=== PATIENT | female | born 1960 | race Caucasian/White ===

== ENCOUNTER 2020-02-23 00:24 | Emergency (ER) | payer BC ==
[2020-02-23] MEDS ORDERED: Bacitracin Oint 1 GM U/D Packet TOP ONE (01:04)
[2020-02-23] MEDS ORDERED: Amoxicillin/Clavulanate K 875-125 MG Tab PO ONE (01:05)
--- NOTE | 2020-02-23 01:12 | EDM.PDOC ---
ED HPI GENERAL MEDICAL PROBLEM - General Chief Complaint: Laceration Stated Complaint: DOG BITE Time Seen by Provider: 02/23/20 01:08 Source of Information: Reports: Patient History Limitations: Reports: No Limitations - History of Present Illness INITIAL COMMENTS - FREE TEXT/NARRATIVE: pt has a bite on the inside of the left thumb. Her dog who is having multiple medical problems had a seizure and was not right after that. She had her last tetanus shot in 2013. Duration: Hour(s): Location: Reports: Upper Extremity, Left Associated Symptoms: Reports: No Other Symptoms - Related Data Allergies Allergy/AdvReac Type Severity Reaction Status Date / Time *blood pressure medication Allergy Hives Uncoded 02/23/20 00:41 Home Meds: Home Meds amLODIPine [Norvasc] 5 mg PO DAILY 02/23/20 [History] Past Medical History HEENT History: Reports: Allergic Rhinitis, Impaired Vision Cardiovascular History: Reports: High Cholesterol, Hypertension [employer] ASS[employer]ATE History: Reports: Musculoskeletal History: Reports: Fracture Neurological History: Reports: Migraines - Infectious Disease History Infectious Disease History: Reports: Chicken Pox - Past Surgical History Musculoskeletal Surgical History: Reports: Arthroscopic Knee Social & Family History - Tobacco Use Tobacco Use Status *Q: Never Tobacco User - Recreational Drug Use Recreational Drug Use: No ED ROS GENERAL - Review of Systems Review Of Systems: See Below Constitutional: Reports: No Symptoms HEENT: Reports: No Symptoms Respiratory: Reports: No Symptoms Cardiovascular: Reports: No Symptoms Endocrine: Reports: No Symptoms GI/Abdominal: Reports: No Symptoms : Reports: No Symptoms Musculoskeletal: Reports: Other (laceration of the left inner thumb from a dog bite. ) ED EXAM, SKIN/RASH Exam: See Below Text/Narrative:: pt has a laceration of the left thumb on the inner aspect about 1 inch in length. Exam Limited By: No Limitations General Appearance: Alert, Anxious Extremities: Other (pt has a 1 inch lacertion of the left thumb. There is normal sensation and motion. ) Neurological: Alert, Oriented, Normal Cognition Course - Vital Signs Last Recorded V/S: Last Vital Signs Temp 35.8 C L 02/23/20 00:50 Pulse 72 02/23/20 00:50 Resp 19 02/23/20 00:50 BP 149/90 H 02/23/20 00:50 Pulse Ox 97 02/23/20 00:50 - Orders/Labs/Meds Meds: Medications Discontinued Medications Generic Name Dose Route Start Last Admin Trade Name Fallon PRN Reason Stop Dose Admin Amoxicillin/Clavulanate Potassium 1 tab 02/23/20 01:05 02/23/20 01:14 Augmentin 875 Mg/125 Mg PO 02/23/20 01:06 1 tab ONETIME ONE Administration Bacitracin 1 dose 02/23/20 01:04 02/23/20 01:14 Bacitracin Oint 1 Gm TOP 02/23/20 01:05 1 dose ONETIME ONE Administration Lidocaine HCl 5 ml 02/23/20 01:04 02/23/20 01:14 Xylocaine-Mpf 1% INJECT 02/23/20 01:05 5 ml ONETIME ONE Administration - Re-Assessments/Exams Free Text/Narrative Re-Assessment/Exam: 02/23/20 01:44 hand was soaked and cleansed well. The area was infiltrated with lidocaine and closed loosely with 5-0 prolene. The wound was dressed with bacatracin. She was given augmentin 875. Pt had her last tetanus in 2013. Departure - Departure Time of Disposition: 01:46 Disposition: Home, Self-Care 01 Condition: Fair Clinical Impression: Dog bite - Discharge Information Referrals: PCP,None [Primary Care Provider] - Forms: ED Department Discharge Care Plan Goals: keep dry, watch closely for any signs of infection, augmentin 875 bid for 10 days, use probiotic or alot of yogurt while on the augmentin suture removal in 7-8 days. Sepsis Event Note (ED) - Evaluation Sepsis Screening Result: No Definite Risk - Focused Exam Vital Signs: Vital Signs Temp Pulse Resp BP Pulse Ox 02/23/20 00:50 35.8 C L 72 19 149/90 H 97
== END 2020-02-23 02:00 | disposition home or self-care (01) ==
LOC: JP.ED 00:24
DX: S61.052A Open bite of left thumb without damage to nail, initial encounter (principal); I10 Essential (primary) hypertension; Z79.899 Other long term (current) drug therapy; Z88.8 Allergy status to other drugs, medicaments and biological substances; W54.0XXA Bitten by dog, initial encounter
CPT/HCPCS: 12001; 12002; 99283; 99283-25; A9270-GY; J2001